=== PATIENT | male | born 1970 ===

== ENCOUNTER 2021-06-06 10:00 | Day surgery (SDC) | payer BC ==
[~2021-06-06] VITALS: Ht 180.3 cm; Wt 96.4 kg
[2021-06-06] MEDS ORDERED: NONE PER PT (10:51)
[2021-06-06] MEDS ORDERED: LACTATED RINGERS 1,000 ML IV SCH (11:00)
[2021-06-06] MEDS ORDERED: CHLORHEXIDINE 15 ML UDC PO ONE (11:00)
[2021-06-06 11:12] VITALS: BP 119/75
[2021-06-06] MEDS ORDERED: BUPIVACAINE/PF 0.5% ONE (11:24)
[2021-06-06] MEDS ORDERED: EPINEPHRINE 1 MG/ML, 1ML ONE (11:24)
[2021-06-06] MEDS ORDERED: ACETAMINOPHEN 325 MG TABLET PO PRN (11:30)
[2021-06-06] MEDS ORDERED: LABETALOL 5MG/ML, 20ML IV PRN (11:30)
[2021-06-06] MEDS ORDERED: ONDANSETRON 2MG/ML, 2ML IVPush PRN ×2 (11:30→12:30)
[2021-06-06] MEDS ORDERED: morphine SULFATE 10 MG/ML, 1ML IVPush PRN ×2 (11:30→12:30)
[2021-06-06] MEDS ORDERED: HYDROmorphone 1 MG/ML, 1ML INJ IVPush PRN (11:30)
[2021-06-06] MEDS ORDERED: hydrALAzine 20 MG/ML, 1ML IV PRN (11:30)
[2021-06-06] MEDS ORDERED: MEPERIDINE/PF 25MG/0.5ML IVPush PRN (11:30)
[2021-06-06] MEDS ORDERED: FENTANYL PF 250 MCG/5ML ONE (11:41)
[2021-06-06] MEDS ORDERED: MIDAZOLAM 1 MG/ML, 2ML ONE (11:41)
[2021-06-06] MEDS ORDERED: PROPOFOL 10 MG/ML, 20ML ONE (11:43)
[2021-06-06] MEDS ORDERED: CEFAZOLIN 1,000 MG ONE (11:43)
[2021-06-06] MEDS ORDERED: NEOSTIGMINE 1 MG/ML, 10ML ONE (11:43)
[2021-06-06] MEDS ORDERED: GLYCOPYRROLATE 0.2MG/1ML, 5ML ONE (11:43)
[2021-06-06] MEDS ORDERED: ROCURONIUM 10MG/ML,5ML ONE (11:43)
[2021-06-06] MEDS ORDERED: FENTANYL PF 100 MCG/2ML ONE ×2 (12:20→12:41)
[2021-06-06] MEDS ORDERED: HYDR-2214 PO (12:27)
[2021-06-06] MEDS ORDERED: ONDA4TAB7 PO (12:27)
[2021-06-06] MEDS ORDERED: HYDROcodone/APAP 5/325 TABLET PO PRN (12:30)
[2021-06-06] MEDS ORDERED: DIPHENHYDRAMINE 50 MG/ML, 1ML IVPush PRN (12:30)
[2021-06-06] MEDS ORDERED: KETOROLAC 30 MG/1 ML IVPush PRN (12:30)
[2021-06-06] MEDS: FENTANYL PF 100 MCG/2ML IV PRN ×3 (12:42→13:39)
[2021-06-06] MEDS ORDERED: OXYcodone 5 MG/5 ML ORAL.SOL UDC ONE (12:56)
[2021-06-06] MEDS ORDERED: ACETAMINOPHEN 650 MG/20.3 ML UDC ONE (12:56)
[2021-06-06] MEDS: OXYcodone 5 MG/5 ML ORAL.SOL UDC PO PRN ×2 (12:58→15:30)
== END 2021-06-06 16:05 | disposition home or self-care (01) ==
LOC: OUT 10:00
PROVIDERS: ATTEND Surgery
DX: K43.9 Ventral hernia without obstruction or gangrene (principal); F17.210 Nicotine dependence, cigarettes, uncomplicated; F12.90 Cannabis use, unspecified, uncomplicated; Z20.822 Contact with and (suspected) exposure to COVID-19; Z72.89 Other problems related to lifestyle
CPT/HCPCS: 49653; 87635; C1781; J0171; J0690; J1885; J2250; J2704; J2710; J3010; J7120; S2900